=== PATIENT | female | born 1960 | race Hispanic/Latino ===

== ENCOUNTER 2016-11-19 08:12 | Emergency (ER) | payer MEDICAID, OTHER ==
[2016-11-19 08:12] VITALS: BMI 32.1
--- NOTE | 2016-11-19 08:38 | ED PDOC ---
Arrival/HPI - General Chief Complaint: Dizziness/Lightheaded Time Seen by Provider: 11/19/16 08:24 Historian: Patient - History of Present Illness Narrative History of Present Illness (Text): 11/19/16 08:38 A 56 year old female presents to the emergency department complaining of a near - syncopal episode prior to arrival. Patient reports it feels similar to prior near-syncopal episodes in the past and improved with her putting her head on a table. Patient states her symptoms have improved. Patient denies any fever, nausea, vomiting, diarrhea, abdominal pain, chest pain, shortness of breath or any other complaints. Patient reports she has not followed up a nurse anesthetist since her last visit. Time/Duration: Prior to Arrival Symptom Course: Improving Quality: Other Context: Work Past Medical History - Provider Review Nursing Documentation Reviewed: Yes - Infectious Disease Hx of Infectious Diseases: None - Cardiac Hx Cardiac Disorders: No - Pulmonary Hx Respiratory Disorders: Yes - Neurological Hx Neurological Disorder: No - HEENT Hx HEENT Disorder: No - Renal Hx Renal Disorder: No - Endocrine/Metabolic Hx Endocrine Disorders: No - Hematological/Oncological Hx Blood Disorders: No - Integumentary Hx Dermatological Disorder: Yes Hx Melanoma: Yes - Musculoskeletal/Rheumatological Hx Musculoskeletal Disorders: No - Gastrointestinal Hx Gastrointestinal Disorders: No - Genitourinary/Gynecological Hx Genitourinary Disorders: No - Psychiatric Hx Psychophysiologic Disorder: Yes Hx Anxiety: Yes Hx Depression: Yes Hx Substance Use: No - Surgical History Hx Orthopedic Surgery: Yes Other/Comment: malignant melanoma removal from back - Anesthesia Hx Anesthesia: Yes Hx Anesthesia Reactions: No - Suicidal Assessment Feels Threatened In Home Enviroment: No Family/Social History - Physician Review Nursing Documentation Reviewed: Yes Family/Social History: No Known Family HX Smoking Status: Never Smoked Hx Alcohol Use: No Hx Substance Use: No Allergies/Home Meds Allergies/Adverse Reactions: Allergies No Known Allergies Allergy (Verified 11/19/16 08:17) Home Medications: Home Meds Medication Instructions Recorded Confirmed hydrOXYzine HCl [Atarax] 10 mg PO PRN 11/19/16 Physical Exam - Physical Exam Narrative Physical Exam (Text): - Review of Systems Constitutional: Normal. absent: Fatigue, Weight Change, Fevers Eyes: Normal ENT: Normal Respiratory: Normal absent: SOB, Cough, Sputum Cardiovascular: (+) near-syncope absent: Chest pain, Palpitations Gastrointestinal: Normal absent: Abdominal pain, Diarrhea, Nausea, Vomiting Genitourinary: Normal. absent: Dysuria, Frequency, Hematuria Musculoskeletal: Normal. absent: Arthralgias, Back Pain, Neck Pain Skin: Normal Neurological: Normal absent: Focal Weakness Endocrine: Normal Hemo/Lymphatic: Normal Psychiatric: Normal - Physical exam Patient appears age appropriate, speaking full sentences without difficulty - Systems Exam Head: Present: Atraumatic, Normocephalic Pupils: Present: PERRL Extraocular Muscles: Present: EOMI Conjunctiva: Present: Normal Mouth: Present: Moist Mucous Membranes Neck: Present: Normal Range of Motion. No: MIDLINE TENDERNESS, Paraspinal Tenderness Respiratory/Chest: Present: Clear to Auscultation, Good Air Exchange. No: Respiratory Distress, Accessory Muscle Use, Tachypneic Cardiovascular: Present: Regular Rate and Rhythm, Normal S1, S2, Peripheral Pulses Present. No: Murmurs Abdomen: Present: Normal Bowel Sounds, No: Tenderness, Peritoneal Signs, Rebound, Guarding, Distention Back: Present: Normal Inspection. No: Midline Tenderness, Paraspinal Tenderness Upper Extremity: Present: Normal Inspection. No: Cyanosis, Edema Lower Extremity: Present: Normal Inspection. No: Edema Neurological: Present: GCS=15, Speech Normal, cranial nerves II through XII fully intact with no cerebellar abnormality, neuro-sensory fully intact. No focal neurological deficits. Skin: Present: Warm, Dry, Normal Color. No: Rashes Lymphatic: Present: OX3, NI, NC Psychiatric: Present: Alert, Oriented x 3, Normal Insight, Normal Concentration Vital Signs Reviewed: Yes Vital Signs Pulse Resp BP Pulse Ox 11/19/16 09:38 68 16 131/82 97 11/19/16 08:12 76 18 142/86 95 Blood Pressure: Normal Pulse: Regular Respiratory Rate: Normal Appearance: Positive for: Well-Appearing, Non-Toxic, Comfortable Pain Distress: None Mental Status: Positive for: Alert and Oriented X 3 Medical Decision Making ED Course and Treatment: 11/19/16 08:38 Impression: A 56 year old female presented after a resolved near-syncopal episode. Patient states that this feels identical to her previous near syncopal episodes which she has experienced in the past. Patient has no acute findings on her physical examination, currently is asymptomatic, and denies any complaints. Patient has no focal neurological deficits, appears well-hydrated, no arrhythmias palpated on her pulse. Differential Diagnosis included but are not limited to: Near syncope Plan: -- EKG -- Reassess and disposition Prior Visits: Notes and results from previous visits were reviewed. Patient seen in ED on for a near-syncopal episode at work. Patient also seen in the ER on for near-syncopal. Patient states that she never followed up with a nurse anesthetist. Progress Notes: EKG shows NSR at [address]-segment elevations, normal intervals. Interpreted by me. Patient feels better and is currently asymptomatic. Patient offered in-patient work up for further evaluation. Patient declined and asked to be discharged home. She states she will follow up as outpatient. Pt states she understands to return to the ER right away for new or worsening symptoms or for inability to f/u with PMD or specialist as instructed. Patient states that she fully agrees with and understands discharge instructions. States that she agrees with the plan and disposition. Verbalized and repeated discharge instructions and plan. I have given the patient opportunity to ask any additional questions. - Scribe Statement The provider has reviewed the documentation as recorded by the Miri Leslie Provider Scribe Attestation: All medical record entries made by the Scribe were at my direction and personally dictated by me. I have reviewed the chart and agree that the record accurately reflects my personal performance of the history, physical exam, medical decision making, and the department course for this patient. I have also personally directed, reviewed, and agree with the discharge instructions and disposition. Disposition/Present on Arrival - Present on Arrival Any Indicators Present on Arrival: No History of DVT/PE: No History of Uncontrolled Diabetes: No Urinary Catheter: No History of Decub. Ulcer: No History Surgical Site Infection Following: None - Disposition Have Diagnosis and Disposition been Completed?: Yes Diagnosis: Near syncope Disposition: HOME/ ROUTINE Disposition Time: 09:07 Patient Plan: Discharge Condition: GOOD Discharge Instructions (ExitCare): Near Syncope (ED) Additional Instructions: PLEASE RETURN TO THE EMERGENCY DEPARTMENT FOR NEW OR WORSENING SYMPTOMS. RETURN RIGHT AWAY IF YOU CANNOT FOLLOW UP WITH YOUR PRIMARY CARE DOCTOR, CLINIC, OR SPECIALIST IN 1-2 DAYS. Referrals: PCP,NO [Primary Care Provider] - Follow up with primary Devon Reyez MD [Staff Provider] - Follow up with primary Tigre Soriano MD [Staff Provider] - Follow up with primary Forms: WORK NOTE
[2016-11-19 09:40] VITALS: BP 131/82; PULSE 68; RESP 16; O2SAT 97
--- NOTE | 2016-11-19 12:12 | CARD ---
APPROVED REPORT EKG Measurement Heart [id number] <Conclusion> Normal sinus rhythm Normal ECG
== END 2016-11-19 09:41 | disposition home or self-care (01) ==
LOC: ED 08:12
DX: R55 Syncope and collapse (principal)

== ENCOUNTER 2017-08-15 15:00 | Emergency (ER) | payer OTHER ==
[2017-08-15 15:02] VITALS: BMI 32.8
[2017-08-15 15:43] VITALS: TEMP 97.9; O2SAT 100
[2017-08-15] MEDS ORDERED: Albuterol-Ipratrop 3 mg / 0.5 (3 ml) UD IH STA (15:59)
--- NOTE | 2017-08-15 16:16 | ED PDOC ---
Arrival/HPI - General Chief Complaint: Allergic Reaction Time Seen by Provider: 08/15/17 15:56 Historian: Patient - History of Present Illness Narrative History of Present Illness (Text): 08/15/17 15:58 A 56 year old female presents to the emergency department for evaluation. 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 She states no source was found, and denies any direct chemical splashing to her face. Patient noticed swelling to her right check which worsened today and notes waking up with redness to her right eye this morning. She is also complaining of burning in her throat and nose. Denies exposure today. Patient denies any fever, chills, vision changes, shortness of breath or any other complaints. Time/Duration: Other (2 days) Context: Work Past Medical History - Provider Review Nursing Documentation Reviewed: Yes - Infectious Disease Hx of Infectious Diseases: None - Cardiac Hx Cardiac Disorders: No - Pulmonary Hx Respiratory Disorders: Yes - Neurological Hx Neurological Disorder: No - HEENT Hx HEENT Disorder: No - Renal Hx Renal Disorder: No - Endocrine/Metabolic Hx Endocrine Disorders: No - Hematological/Oncological Hx Blood Disorders: No - Integumentary Hx Dermatological Disorder: Yes Hx Melanoma: Yes - Musculoskeletal/Rheumatological Hx Musculoskeletal Disorders: No - Gastrointestinal Hx Gastrointestinal Disorders: No - Genitourinary/Gynecological Hx Genitourinary Disorders: No - Psychiatric Hx Anxiety: Yes Hx Depression: Yes Hx Substance Use: No - Surgical History Hx Orthopedic Surgery: Yes Other/Comment: malignant melanoma removal from back - Anesthesia Hx Anesthesia: Yes Hx Anesthesia Reactions: No - Suicidal Assessment Feels Threatened In Home Enviroment: No Family/Social History - Physician Review Nursing Documentation Reviewed: Yes Family/Social History: No Known Family HX Smoking Status: Never Smoked Hx Alcohol Use: No Hx Substance Use: No Allergies/Home Meds Allergies/Adverse Reactions: Allergies No Known Allergies Allergy (Verified 07/15/17 09:06) Home Medications: Home Meds Medication Instructions Recorded Confirmed No Known Home Med 08/15/17 08/15/17 Review of Systems - Physician Review All systems were reviewed & negative as marked: Yes - Review of Systems Constitutional: absent: Fevers, Night Sweats Eyes: absent: Vision Changes ENT: Other (redness to right eye, throat itching). absent: Hearing Changes, Tinnitus, Voice Changes, Sore Throat, Rhinorrhea, Sinus Congestion Respiratory: absent: SOB, Cough, Sputum, Wheezing Gastrointestinal: absent: Abdominal Pain, Constipation, Diarrhea, Nausea, Vomiting Skin: Other (right cheek swelling) Physical Exam Vital Signs Reviewed: Yes Vital Signs Temp Pulse Resp BP Pulse Ox 08/15/17 17:00 82 18 130/87 100 08/15/17 15:33 97.9 F 84 19 132/9 L 100 Temperature: Afebrile Blood Pressure: Normal Pulse: Regular Respiratory Rate: Normal Appearance: Positive for: Well-Appearing, Non-Toxic, Comfortable Pain Distress: None Mental Status: Positive for: Alert and Oriented X 3 - Systems Exam Head: Present: Atraumatic, Normocephalic, Other (Right cheek slightly swollen compared to left) Pupils: Present: PERRL Extroacular Muscles: Present: EOMI Conjunctiva: Present: Other (right subconjunctival hemorrhage) Mouth: Present: Moist Mucous Membranes Pharnyx: Present: Normal. No: ERYTHEMA, EXUDATE, TONSILS ENLARGED, Peritonsilar Swelling, Uvular Deviation, Muffled/Hoarse Voice, Strider, Soft Palate/Uvular Edema Neck: Present: Normal Range of Motion. No: Paraspinal Tenderness Respiratory/Chest: Present: Clear to Auscultation, Good Air Exchange. No: Respiratory Distress, Accessory Muscle Use Cardiovascular: Present: Regular Rate and Rhythm, Normal S1, S2. No: Murmurs Neurological: Present: GCS=15, CN II-XII Intact, Speech Normal Skin: Present: Warm, Dry, Normal Color. No: Rashes Psychiatric: Present: Alert, Oriented x 3, Normal Insight, Normal Concentration Medical Decision Making ED Course and Treatment: 08/15/17 15:57 Impression: A 56 year old female with mild right cheek swelling and redness to right eye Plan: -- Duoneb and Benadryl -- Reassess and disposition Progress Notes: Patient instructed to follow up with employee health. On exam no wheezing, will evaluate after nebulizer treatment. 08/15/17 16:51 Patient ambulating around the ED wtihout issue. Normal vitals. Swelling improved after benadryl. No wheezing. Instructed to take benadryl [id number] prn and follow-up with employee health 08/15/17 21:46 - Medication Orders Current Medication Orders: Discontinued Medications Albuterol/Ipratropium (Duoneb 3 Mg/0.5 Mg (3 Ml) Ud) 3 ml IH STAT STA Stop: 08/15/17 16:00 Last Admin: 08/15/17 16:42 Dose: 3 ml Diphenhydramine HCl (Benadryl) 50 mg PO STAT STA Stop: 08/15/17 16:00 Last Admin: 08/15/17 16:42 Dose: 50 mg - Scribe Statement The provider has reviewed the documentation as recorded by the Miri Leslie Provider Scribe Attestation: All medical record entries made by the Scribe were at my direction and personally dictated by me. I have reviewed the chart and agree that the record accurately reflects my personal performance of the history, physical exam, medical decision making, and the department course for this patient. I have also personally directed, reviewed, and agree with the discharge instructions and disposition. Disposition/Present on Arrival - Present on Arrival Any Indicators Present on Arrival: No History of DVT/PE: No History of Uncontrolled Diabetes: No Urinary Catheter: No History of Decub. Ulcer: No History Surgical Site Infection Following: None - Disposition Have Diagnosis and Disposition been Completed?: Yes Diagnosis: Inhalation of noxious fumes, Subconjunctival hemorrhage of right eye, Facial swelling Disposition: HOME/ ROUTINE Disposition Time: 16:52 Patient Plan: Discharge Condition: GOOD Additional Instructions: [facility] Employee Regarding your Work Related Injury, you are instructed to do all of the following by next day: 1. Notify [facility] Employee Health Department of the sustained injury and arrange for any follow-up appointments if needed during the next business day. If the office is closed or no answer is received, please leave a detailed voice message. Message should include your full name, department and energy project manager, date of injury, date of ED visit if applicable. Employee Health can be reached at [phone]. 2. If there is time lost, notify [facility] Human Resources Department of the work related injury the next business day at [phone]. Forms: [employer] (Kazakh)
[2017-08-15 17:32] VITALS: BP 130/87; PULSE 82; RESP 18
== END 2017-08-15 17:00 | disposition home or self-care (01) ==
LOC: ED 15:00
DX: T59.91XA Toxic effect of unspecified gases, fumes and vapors, accidental (unintentional), initial encounter (principal); H11.31 Conjunctival hemorrhage, right eye; Y92.238 Other place in hospital as the place of occurrence of the external cause; Y99.0 Civilian activity done for income or pay; R22.0 Localized swelling, mass and lump, head

== ENCOUNTER 2018-06-11 15:08 | Emergency (ER) | payer OTHER ==
[2018-06-11 15:08] VITALS: BMI 32.8
[2018-06-11 17:25] LABS: TROPONIN I < 0.01 ng/mL
--- NOTE | 2018-06-11 17:47 | ED PDOC ---
Arrival/HPI - General Chief Complaint: Eye Problem Time Seen by Provider: 06/11/18 15:34 Historian: Patient - History of Present Illness Narrative History of Present Illness (Text): 06/11/18 16:04 A 57 year old female, whose past medical history includes myloma, currently treated with chemotherapy, presents to the emergency department complaining of intermittent double/blurry vision since yesterday. Patient reports having CT Ch est/Abd/Pelvis with IV/PO contrast for "constipation." Patient denies any neck stiffness, fever, ataxia, weakness to extremities, or any other complaints at this time. No PMD Time/Duration: 24 hours Past Medical History - Provider Review Nursing Documentation Reviewed: Yes - Infectious Disease Hx of Infectious Diseases: None - Cardiac Hx Cardiac Disorders: No - Pulmonary Hx Respiratory Disorders: Yes - Neurological Hx Neurological Disorder: No - HEENT Hx HEENT Disorder: No - Renal Hx Renal Disorder: No - Endocrine/Metabolic Hx Endocrine Disorders: No - Hematological/Oncological Hx Blood Disorders: No - Integumentary Hx Dermatological Disorder: Yes Hx Melanoma: Yes (upper left back) - Musculoskeletal/Rheumatological Hx Musculoskeletal Disorders: No - Gastrointestinal Hx Gastrointestinal Disorders: No - Genitourinary/Gynecological Hx Genitourinary Disorders: No - Psychiatric Hx Anxiety: Yes Hx Depression: Yes Hx Substance Use: No - Surgical History Hx Orthopedic Surgery: Yes Other/Comment: malignant melanoma removal from back - Anesthesia Hx Anesthesia: Yes Hx Anesthesia Reactions: No - Suicidal Assessment Feels Threatened In Home Enviroment: No Family/Social History - Physician Review Nursing Documentation Reviewed: Yes Family/Social History: No Known Family HX Smoking Status: Never Smoked Hx Alcohol Use: No Hx Substance Use: No Allergies/Home Meds Allergies/Adverse Reactions: Allergies No Known Allergies Allergy (Verified 07/15/17 09:06) Review of Systems - Physician Review All systems were reviewed & negative as marked: Yes - Review of Systems Constitutional: absent: Fevers Eyes: Vision Changes (intermittent double/blurry vision) Musculoskeletal: absent: Other (no neck stiffness) Neurological: absent: Other (no weakness to extremities) Physical Exam Vital Signs Reviewed: Yes Vital Signs Temp Pulse Resp BP Pulse Ox 06/11/18 17:30 98.8 F 94 H 18 126/76 95 06/11/18 15:24 90 16 143/83 94 L 06/11/18 15:15 90 16 140/83 93 L Temperature: Afebrile Blood Pressure: Normal Pulse: Regular Respiratory Rate: Normal Appearance: Positive for: Well-Appearing, Non-Toxic, Comfortable Pain Distress: None Mental Status: Positive for: Alert and Oriented X 3 - Systems Exam Head: Present: Atraumatic, Normocephalic Pupils: Present: PERRL Extroacular Muscles: Present: EOMI Conjunctiva: Present: Normal Mouth: Present: Moist Mucous Membranes Neck: Present: Normal Range of Motion Respiratory/Chest: Present: Clear to Auscultation, Good Air Exchange. No: Respiratory Distress, Accessory Muscle Use Cardiovascular: Present: Regular Rate and Rhythm, Normal S1, S2. No: Murmurs Abdomen: No: Tenderness, Distention, Peritoneal Signs Back: Present: Normal Inspection Upper Extremity: Present: Normal Inspection. No: Cyanosis, Edema Lower Extremity: Present: Normal Inspection. No: Edema Neurological: Present: GCS=15, CN II-XII Intact, Speech Normal Skin: Present: Warm, Dry, Normal Color, Other (chronic skin lesion to mid- thoracic region to the left-side.). No: Rashes Psychiatric: Present: Alert, Oriented x 3, Normal Insight, Normal Concentration Medical Decision Making ED Course and Treatment: 06/11/18 16:07 Impression: 57 year old female with intermittent double/blurry vision. Physical exam shows chronic skin lesion on her mid-thoracic region to the left-side; no other acute findings on examination. Plan: -- EKG -- Head CT -- Labs -- Reassess and disposition Progress Notes: EKG: Ordered, reviewed, and independently interpreted the EKG. Rate : 90 BPM Rhythm : NSR Interpretation : No ST-segment elevations or depressions, no T-wave inversions, normal intervals. Comparison : No previous EKG for comparison. 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 Questionable minimal ischemic changes anterior aspect left basal ganglia. Mild to moderate central volume loss. Chronic of right orbital floor fracture. Dictator: Rambo De Souza MD Radiology Orders: 06/11/18 15:51 HEAD W/O CONTRAST [CT] Stat - Scribe Statement The provider has reviewed the documentation as recorded by the Yongibjesus Lubin Provider Scribe Attestation: All medical record entries made by the Scribe were at my direction and personally dictated by me. I have reviewed the chart and agree that the record accurately reflects my personal performance of the history, physical exam, medical decision making, and the department course for this patient. I have also personally directed, reviewed, and agree with the discharge instructions and disposition. Disposition/Present on Arrival - Present on Arrival Any Indicators Present on Arrival: No History of DVT/PE: No History of Uncontrolled Diabetes: No Urinary Catheter: No History of Decub. Ulcer: No History Surgical Site Infection Following: None - Disposition Have Diagnosis and Disposition been Completed?: Yes Diagnosis: Melanoma Disposition: HOME/ ROUTINE Disposition Time: 18:00 Condition: STABLE Discharge Instructions (ExitCare): Melanoma Skin Cancer (DC) Additional Instructions: DIEGO BUTTERFIELD, thank you for letting us take care of you today. The emergency medical care you received today was directed at your acute symptoms. If you were prescribed any medication, please fill it and take as directed. It may take several days for your symptoms to resolve. Return to the Emergency Department if your symptoms worsen, do not improve, or if you have any other problems. Please contact your doctor or call one of the physicians/clinics you have been referred to that are listed on the Patient Visit Information form that is included in your discharge packet. Bring any paperwork you were given at discharge with you along with any medications you are taking to your follow up visit. Our treatment cannot replace ongoing medical care by a primary care provider outside of the emergency department. Thank you for allowing the [facility] team to be part of your care today. Follow up with your oncologist tomorrow as scheduled. Prescriptions: Zolpidem [Ambien] 5 mg PO HS PRN #14 tab PRN Reason: Insomnia Forms: [employer] (Czech)
--- NOTE | 2018-06-11 17:50 | CARD ---
APPROVED REPORT Date of service: 06/11/2018 EKG Measurement Heart [id number] <Conclusion> Normal sinus rhythm Possible Left atrial enlargement Borderline ECG
--- NOTE | 2018-06-11 18:13 | CT ---
Date of service: 06/11/2018 PROCEDURE: CT HEAD WITHOUT CONTRAST. HISTORY: Blurry/double vision COMPARISON: Comparison made with prior CT scan brain 01/27/2016.. Comparison also made with MRI brain 02/11/2018.the the TECHNIQUE: Axial computed tomography images were obtained through the head/brain without intravenous contrast. Radiation dose: Total exam DLP = 878.72 mGy-cm. This CT exam was performed using one or more of the following dose reduction techniques: Automated exposure control, adjustment of the mA and/or kV according to patient size, and/or use of iterative reconstruction technique. FINDINGS: HEMORRHAGE: No acute parenchymal, subarachnoid or extra-axial hemorrhage. BRAIN: There are minimal chronic periventricular white matter ischemic changes of. In addition, there also appears to be a and small chronic appearing lacunar type infarct anterior limb right internal capsule. Questionable minimal ischemic changes left anterior basal ganglia. Note that the possibility of a small hyperacute infarct cannot be excluded based on this exam. Clinical correlation recommended. Mild to moderate central volume loss evidenced by slight disproportionate enlargement of the ventricles compared the sulci. No obvious parenchymal nor extra-axial mass or collection seen on this noncontrast exam. VENTRICLES: No obstructive hydrocephalus. CALVARIUM: Calvarium intact however suspect chronic appearing fracture floor right orbit with a herniation of a small amount of orbital fat inferiorly through the defect.. Orbits and contents otherwise unremarkable PARANASAL SINUSES: The unremarkable as visualized. No significant inflammatory changes. MASTOID AIR CELLS: Unremarkable as visualized. No inflammatory changes. OTHER FINDINGS: None. 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 Questionable minimal ischemic changes anterior aspect left basal ganglia. Mild to moderate central volume loss. Chronic of right orbital floor fracture.
[2018-06-11 19:00] VITALS: BP 146/89; RESP 16; TEMP 98.2
[2018-06-11 19:05] VITALS: PULSE 99; O2SAT 97
== END 2018-06-11 19:00 | disposition home or self-care (01) ==
LOC: ED 15:08
DX: C43.59 Malignant melanoma of other part of trunk (principal)